=== PATIENT | male | born 1945 | race Caucasian/White ===

== ENCOUNTER 2017-03-14 06:28 | Day surgery (SDC) | payer MEDICARE, OTHER ==
[~2017-03-14] VITALS: Ht 175.3 cm; Wt 73.5 kg
[2017-03-14] VITALS (20 sets, daily range): BP systolic 78–130; BP diastolic 54–89
[~2017-03-14 06:28] MED LIST: FENT-91 TP; HYDR-3965 PO; HYDR-569 PO; METO1TAB25 PO; PANT-47 PO; TRAZ-143 PO; TRIA1CAP14
[2017-03-14] MEDS ORDERED: normal saline 1000ml 1,000 ML IV SCH ×3 (07:00→08:49)
[2017-03-14] MEDS ORDERED: oxyCODONE IR 5mg (immed. release) tablet PO PRN (07:00)
[2017-03-14] MEDS ORDERED: midazolam 2 mg/2 ml injection IV PRN (08:00)
[2017-03-14] MEDS ORDERED: fentaNYL/PF 50MCG/1 ML 2ML syringe IV PRN (08:00)
[2017-03-14] MEDS ORDERED: LIDOcaine 1%/PF (10mg/ml) 5ml vial SQ ONE (08:00)
[2017-03-14 08:01] LABS: BASOPHILS # (AUTO) 0.2 X10'3 (0-0.2); BASOPHILS % (AUTO) 1.4 % (0-1); EOSINOPHILS # (AUTO) 0.5 X10'3 (0-0.9); EOSINOPHILS % (AUTO) 2.9 % (0-6); HEMATOCRIT 41.9 % (42.0-52.0); HEMOGLOBIN 13.8 g/dl (14.0-17.9); LYMPHOCYTES # (AUTO) 1.2 X10'3 (1.1-4.8); MEAN CORPUSCULAR HEMOGLOBIN 29.9 PG (27.0-31.0); MEAN CORPUSCULAR HGB CONC 32.8 % (33.0-36.5); MEAN CORPUSCULAR VOLUME 91.2 FL (78-98); MEAN PLATELET VOLUME 7.3 FL (7.4-10.4); MONOCYTES # (AUTO) 1.2 X10'3 (0-0.9); MONOCYTES % (AUTO) 7.3 % (2-12); NEUTROPHILS % (AUTO) 81.4 % (42-75); PLATELET COUNT 305 X10'3 (140-440); RED CELL DISTRIBUTION WIDTH 14.8 % (11.5-14.5); WHITE BLOOD COUNT 17.1 X10'3 (4.5-11.0)
[2017-03-14] MEDS ORDERED: VITE1000C PO (08:07)
[2017-03-14] MEDS ORDERED: ASCO500C15 PO (08:07)
[2017-03-14] MEDS ORDERED: CYCL-1 PO (08:07)
[2017-03-14] MEDS ORDERED: TRIA1TAB92 PO (08:07)
[2017-03-14] MEDS ORDERED: Juice Plus PO (08:07)
[2017-03-14] MEDS ORDERED: FENT1PAT7 TOP (08:07)
[2017-03-14] MEDS ORDERED: VITAMIN D PO (08:07)
[2017-03-14] MEDS ORDERED: METO50TA7 PO (08:07)
[2017-03-14] MEDS ORDERED: UBID50TA3 PO (08:07)
[2017-03-14] MEDS ORDERED: fentaNYL/PF 50MCG/1 ML 2ML syringe ONE (08:37)
[2017-03-14] MEDS ORDERED: midazolam 2 mg/2 ml injection ONE (08:37)
[2017-03-14] MEDS ORDERED: HYDROcodone/acetaminophen 5mg/325mg tablet PO PRN ×2 (08:50)
[2017-03-14] MEDS ORDERED: HYDROmorphone 1 mg/ml syringe ONE (09:04)
[2017-03-14] MEDS ORDERED: pneumococcal 23-VAL P-sac vacc 25 mcg/0.5ml vial IMVAC ONE (09:30)
[2017-03-14] MEDS ORDERED: LIDOcaine 1% (10mg/ml) 2ml vial ONE (12:52)
[2017-03-14] MEDS ORDERED: ondansetron/PF 4mg/2ml inj ONE (13:18)
== END 2017-03-14 13:55 | disposition home or self-care (01) ==
LOC: SSTAY O 06:28
PROVIDERS: ATTEND Radiology Diagnostic Radiology
DX: K76.89 Other specified diseases of liver (principal); I10 Essential (primary) hypertension; Z87.891 Personal history of nicotine dependence; M19.90 Unspecified osteoarthritis, unspecified site; G89.29 Other chronic pain; Z90.49 Acquired absence of other specified parts of digestive tract; Z98.890 Other specified postprocedural states; Z72.89 Other problems related to lifestyle; Z79.899 Other long term (current) drug therapy; Z98.52 Vasectomy status; Z79.82 Long term (current) use of aspirin
CPT/HCPCS: 36415; 47000; 76942; 85025; 85610; 88341; 88342; 90471; 90732; A6449; J2250; J2405; J3010; J3490; J7030; 88173; 88305; 99152; 99153; A4620; G0009; J1170

== ENCOUNTER 2017-03-17 07:45 | Inpatient (IN) | payer MEDICARE, OTHER ==
[~2017-03-17] VITALS: Ht 175.3 cm; Wt 75.0 kg
[~2017-03-17 07:45] MED LIST changes: +ASCO500C15 PO; +CYCL-1 PO; -FENT-91 TP; +FENT1PAT7 TOP; -HYDR-569 PO; +Juice Plus PO; -METO1TAB25 PO; +METO50TA7 PO; -PANT-47 PO; -TRIA1CAP14; +TRIA1TAB92 PO; +UBID50TA3 PO; +VITAMIN D PO; +VITE1000C PO
[2017-03-17] MEDS ORDERED: normal saline 1000ML IV soln IV ONE (08:10)
[2017-03-17] MEDS ORDERED: magnesium 2GM in 50ml NS 50 ML IV ONE (08:10)
[2017-03-17] MEDS ORDERED: nitroGLYCERIN 0.2mg/hour patch TD ONE (08:15)
[2017-03-17] MEDS ORDERED: aspirin 81mg tab.chew PO ONE (08:15)
[2017-03-17 08:36] LABS: BASOPHILS # (AUTO) 0.1 X10'3 (0-0.2); BASOPHILS % (AUTO) 0.4 % (0-1); EOSINOPHILS # (AUTO) 0.4 X10'3 (0-0.9); EOSINOPHILS % (AUTO) 2.1 % (0-6); HEMATOCRIT 36.7 % (42.0-52.0); HEMOGLOBIN 12.1 g/dl (14.0-17.9); LYMPHOCYTES # (AUTO) 0.7 X10'3 (1.1-4.8); LYMPHOCYTES % (AUTO) 3.9 % (21-51); MEAN CORPUSCULAR HEMOGLOBIN 30.1 PG (27.0-31.0); MEAN CORPUSCULAR HGB CONC 32.9 % (33.0-36.5); MEAN CORPUSCULAR VOLUME 91.4 FL (78-98); MEAN PLATELET VOLUME 7.2 FL (7.4-10.4); MONOCYTES # (AUTO) 0.7 X10'3 (0-0.9); NEUTROPHILS # (AUTO) 15.9 X10'3 (1.8-7.7); NEUTROPHILS % (AUTO) 89.6 % (42-75); PLATELET COUNT 290 X10'3 (140-440); RED BLOOD COUNT 4.02 X10'6 (4.70-6.10); RED CELL DISTRIBUTION WIDTH 15.1 % (11.5-14.5); WHITE BLOOD COUNT 17.7 X10'3 (4.5-11.0)
[2017-03-17 08:53] LABS: ALANINE AMINOTRANSFERASE 47 U/L (12-78); ALBUMIN 2.8 G/DL (3.4-5.0); ALBUMIN/GLOBULIN RATIO 0.5 (1.1-1.5); ALKALINE PHOSPHATASE 300 IU/L (46-116); AMYLASE 24 U/L (25-115); ANION GAP 10 (8-16); ASPARTATE AMINO TRANSFERASE 51 U/L (10-37); BILIRUBIN,TOTAL 0.8 MG/DL (0.1-1.0); BLOOD UREA NITROGEN 18 MG/DL (7-18); CHLORIDE 98 MMOL/L (99-107); GLUCOSE 130 MG/DL (70-104); INR 1.1 INR; LIPASE 95 U/L (73-393); MAGNESIUM 1.8 MG/DL (1.5-2.4); PARTIAL THROMBOPLASTIN TIME 28 SECONDS (22-32); PHOSPHORUS 3.4 MG/DL (2.3-4.5); POTASSIUM 3.8 MMOL/L (3.5-5.1); SODIUM 137 MMOL/L (135-145); TOTAL CARBON DIOXIDE 28.7 MMOL/L (24-32); TOTAL PROTEIN 7.9 G/DL (6.4-8.2); eGFR 59 ML/MIN
[2017-03-17] MEDS ORDERED: morphine 2 MG/ML inj. syringe IV ONE ×2 (09:50→10:00)
[2017-03-17] MEDS ORDERED: normal saline 1000ML IV soln IVB ONE (10:15)
[2017-03-17] MEDS ORDERED: mag hydrox/Alum hydrox/simeth 30ml oral suspension PO PRN (11:15)
[2017-03-17] MEDS ORDERED: magnesium hydroxide 30ml (MOM) UD suspension PO PRN (11:15)
[2017-03-17] MEDS ORDERED: acetaminophen 325mg tablet PO PRN (11:15)
[2017-03-17] MEDS ORDERED: HYDROcodone/acetaminophen 5mg/325mg tablet PO PRN (11:30)
[2017-03-17] MEDS: normal saline 1000ml 1,000 ML IV SCH ×2 (11:48→21:12)
[2017-03-17] MEDS: levoFLOXACIN-Levaquin 750MG/D5 150 ML IV SCH (11:49)
[2017-03-17 12:12] LABS: CLARITY,URINE CLEAR (Clear); COLOR,URINE YELLOW (Yellow); GLUCOSE, URINE NEGATIVE (Neg); KETONES,URINE NEGATIVE (Neg); LEUKOCYTE ESTERASE ,URINE TRACE (Neg); NITRITES, URINE NEGATIVE (Neg); OCCULT BLOOD,URINE MODERATE (Neg); PH,URINE 5.5 (4.8-8.0); PROTEIN,URINE TRACE mg/dl (Neg)
[2017-03-17 12:13] LABS: UA COLLECTION TYPE CLN CATCH MIDSTREAM
[2017-03-17 12:25] LABS: BACTERIA,URINE FEW /HPF (Neg); MUCUS STRANDS MODERATE /LPF (Neg); SQUAMOUS EPITHELIAL CELL,UR FEW /LPF (FEW)
[2017-03-17] MEDS: HYDROcodone/acetaminophen 10/325mg tab PO PRN ×2 (13:30→20:10)
[2017-03-17 16:00] VITALS: BP 112/73
[2017-03-17] MEDS: morphine 2 MG/ML inj. syringe IV PRN (17:26)
[2017-03-17 18:30] VITALS: BP 102/58
[2017-03-17] MEDS: heparin, porcine 5000 units/ml vial SQ SCH (22:01)
[2017-03-17] MEDS: traZODone 150mg tablet PO SCH (22:01)
[2017-03-18] VITALS: BP 149/87
[2017-03-18] MEDS: cyclobenzaprine 10mg tablet PO PRN ×2 (00:57→21:48)
[2017-03-18] MEDS: HYDROcodone/acetaminophen 10/325mg tab PO PRN ×4 (00:59→17:41)
[2017-03-18] MEDS: morphine 2 MG/ML inj. syringe IV PRN ×5 (01:26→20:11)
[2017-03-18] MEDS: vancomycin/NS 1 GM ADD-VANTAGE 250 ML IV SCH ×2 (01:29→13:17)
[2017-03-18 05:39] LABS: BASOPHILS # (AUTO) 0.1 X10'3 (0-0.2); BASOPHILS % (AUTO) 1.1 % (0-1); EOSINOPHILS # (AUTO) 0.9 X10'3 (0-0.9); EOSINOPHILS % (AUTO) 6.5 % (0-6); HEMATOCRIT 28.6 % (42.0-52.0); HEMOGLOBIN 9.4 g/dl (14.0-17.9); LYMPHOCYTES # (AUTO) 0.9 X10'3 (1.1-4.8); LYMPHOCYTES % (AUTO) 7.1 % (21-51); MEAN CORPUSCULAR HEMOGLOBIN 30.2 PG (27.0-31.0); MEAN CORPUSCULAR HGB CONC 32.9 % (33.0-36.5); MEAN CORPUSCULAR VOLUME 91.8 FL (78-98); MEAN PLATELET VOLUME 7.5 FL (7.4-10.4); MONOCYTES # (AUTO) 0.8 X10'3 (0-0.9); MONOCYTES % (AUTO) 6.4 % (2-12); NEUTROPHILS # (AUTO) 10.4 X10'3 (1.8-7.7); NEUTROPHILS % (AUTO) 78.9 % (42-75); PLATELET COUNT 210 X10'3 (140-440); RED BLOOD COUNT 3.11 X10'6 (4.70-6.10); RED CELL DISTRIBUTION WIDTH 15.1 % (11.5-14.5); WHITE BLOOD COUNT 13.2 X10'3 (4.5-11.0)
[2017-03-18 05:55] LABS: ALBUMIN 2.1 G/DL (3.4-5.0); ANION GAP 10 (8-16); BLOOD UREA NITROGEN 13 MG/DL (7-18); BUN/CREATININE RATIO 16.3 (5.4-32.0); CALCIUM 8.3 MG/DL (8.5-10.1); CHLORIDE 105 MMOL/L (99-107); GLUCOSE 96 MG/DL (70-104); POTASSIUM 3.8 MMOL/L (3.5-5.1); SODIUM 139 MMOL/L (135-145); TOTAL CARBON DIOXIDE 24.4 MMOL/L (24-32); eGFR > 90 ML/MIN
[2017-03-18 07:00] VITALS: BP 144/82
[2017-03-18] MEDS: normal saline 1000ml 1,000 ML IV SCH ×2 (07:12→17:40)
[2017-03-18 08:00] VITALS: BP_SYST 114; BP_SYST 127; BP_SYST 134; BP_DIAS 66; BP_DIAS 71; BP_DIAS 72
[2017-03-18] MEDS ORDERED: [UNRECOGNIZED DRUG - OTHER] PO SCH (08:00)
[2017-03-18] MEDS ORDERED: non-formulary drug (Ubidecarenone (Coq10) 50 MG) PO SCH (08:00)
[2017-03-18] MEDS ORDERED: metoprolol tartrate 50mg tablet PO ONE (08:00)
[2017-03-18] MEDS: levoFLOXACIN-Levaquin 750MG/D5 150 ML IV SCH (08:32)
[2017-03-18] MEDS: vitamin D (cholecalciferol) 1,000 unit tablet PO SCH (08:33)
[2017-03-18] MEDS: pantoprazole 40mg Tablet.DR PO SCH (08:33)
[2017-03-18] MEDS: triamterene/HCTZ 37.5/25mg tablet PO SCH (08:33)
[2017-03-18] MEDS: ascorbic acid 500mg tablet PO SCH (08:33)
[2017-03-18] MEDS: metoprolol succinate 25mg (24-HOUR) SR. Tablet PO SCH (08:34)
[2017-03-18] MEDS: heparin, porcine 5000 units/ml vial SQ SCH (08:39)
[2017-03-18] MEDS: fentaNYL 25MCG/hour patch.TD72 TD SCH (09:02)
[2017-03-18 12:03] VITALS: BP 106/68
[2017-03-18 19:00] VITALS: BP_SYST 117; BP_SYST 122; BP_SYST 137; BP_DIAS 62; BP_DIAS 67; BP_DIAS 68
[2017-03-18] MEDS ORDERED: heparin 10,000 units/1 ML INJ IV ONE (19:25)
[2017-03-18] MEDS ORDERED: nitroGLYCERIN 0.4mg SUBLingual tab SL PRN (19:30)
[2017-03-18 19:38] LABS: BASOPHILS % (AUTO) 0.3 % (0-1); EOSINOPHILS # (AUTO) 0.7 X10'3 (0-0.9); EOSINOPHILS % (AUTO) 5.2 % (0-6); HEMATOCRIT 29.8 % (42.0-52.0); HEMOGLOBIN 9.8 g/dl (14.0-17.9); LYMPHOCYTES # (AUTO) 0.8 X10'3 (1.1-4.8); LYMPHOCYTES % (AUTO) 5.9 % (21-51); MEAN CORPUSCULAR HEMOGLOBIN 30.1 PG (27.0-31.0); MEAN CORPUSCULAR HGB CONC 32.9 % (33.0-36.5); MEAN CORPUSCULAR VOLUME 91.5 FL (78-98); MEAN PLATELET VOLUME 7.1 FL (7.4-10.4); MONOCYTES # (AUTO) 0.8 X10'3 (0-0.9); MONOCYTES % (AUTO) 5.5 % (2-12); NEUTROPHILS # (AUTO) 11.9 X10'3 (1.8-7.7); NEUTROPHILS % (AUTO) 83.1 % (42-75); PLATELET COUNT 264 X10'3 (140-440); RED BLOOD COUNT 3.26 X10'6 (4.70-6.10); RED CELL DISTRIBUTION WIDTH 14.7 % (11.5-14.5); WHITE BLOOD COUNT 14.3 X10'3 (4.5-11.0)
[2017-03-18] MEDS ORDERED: aspirin 325mg tablet PO STA (19:43)
[2017-03-18] MEDS: aspirin 325mg tablet PO SCH (19:48)
[2017-03-18 20:02] LABS: INR 1.2 INR
[2017-03-18] MEDS: docusate sod 100mg capsule PO SCH (21:46)
[2017-03-18] MEDS: traZODone 150mg tablet PO SCH (21:48)
[2017-03-18] MEDS: sennosides 8.6mg tablet PO SCH (21:48)
[2017-03-18 23:00] VITALS: BP 115/64
[2017-03-19] MEDS ORDERED: VANCOMYCIN LEVEL IV NR (00:30)
[2017-03-19] MEDS: morphine 2 MG/ML inj. syringe IV PRN ×6 (01:25→23:36)
[2017-03-19] MEDS: vancomycin/NS 1 GM ADD-VANTAGE 250 ML IV SCH (01:53)
[2017-03-19] MEDS: normal saline 1000ml 1,000 ML IV SCH ×3 (01:53→23:12)
[2017-03-19 01:58] LABS: VANCOMYCIN,TROUGH 8.9 UG/ML (6.0-14.0)
[2017-03-19 02:08] LABS: BASOPHILS # (AUTO) 0.1 X10'3 (0-0.2); BASOPHILS % (AUTO) 0.5 % (0-1); EOSINOPHILS % (AUTO) 7.1 % (0-6); HEMATOCRIT 30.3 % (42.0-52.0); HEMOGLOBIN 10.1 g/dl (14.0-17.9); LYMPHOCYTES # (AUTO) 1.3 X10'3 (1.1-4.8); MEAN CORPUSCULAR HEMOGLOBIN 30.5 PG (27.0-31.0); MEAN CORPUSCULAR HGB CONC 33.2 % (33.0-36.5); MEAN CORPUSCULAR VOLUME 91.8 FL (78-98); MEAN PLATELET VOLUME 7.4 FL (7.4-10.4); MONOCYTES # (AUTO) 0.9 X10'3 (0-0.9); NEUTROPHILS # (AUTO) 10.1 X10'3 (1.8-7.7); NEUTROPHILS % (AUTO) 75.4 % (42-75); PLATELET COUNT 270 X10'3 (140-440); RED CELL DISTRIBUTION WIDTH 14.7 % (11.5-14.5); WHITE BLOOD COUNT 13.4 X10'3 (4.5-11.0)
[2017-03-19] MEDS: heparin 10,000 units/1 ML INJ IV PRN (02:19)
[2017-03-19 02:49] LABS: ALBUMIN 2.1 G/DL (3.4-5.0); ANION GAP 9 (8-16); BLOOD UREA NITROGEN 13 MG/DL (7-18); BUN/CREATININE RATIO 16.3 (5.4-32.0); CALCIUM 8.8 MG/DL (8.5-10.1); CHLORIDE 102 MMOL/L (99-107); GLUCOSE 90 MG/DL (70-104); POTASSIUM 3.6 MMOL/L (3.5-5.1); SODIUM 138 MMOL/L (135-145); TROPONIN I < 0.04 NG/ML (0.0-0.05); eGFR > 90 ML/MIN
[2017-03-19 04:00] VITALS: BP 122/67
[2017-03-19 08:10] VITALS: BP 122/67
[2017-03-19] MEDS: levoFLOXACIN-Levaquin 750MG/D5 150 ML IV SCH (09:28)
[2017-03-19] MEDS: triamterene/HCTZ 37.5/25mg tablet PO SCH (09:29)
[2017-03-19] MEDS: aspirin 325mg tablet PO SCH (09:29)
[2017-03-19] MEDS: docusate sod 100mg capsule PO SCH ×2 (09:29→19:33)
[2017-03-19] MEDS: sennosides 8.6mg tablet PO SCH ×2 (09:29→19:33)
[2017-03-19] MEDS: ascorbic acid 500mg tablet PO SCH (09:29)
[2017-03-19] MEDS: vitamin D (cholecalciferol) 1,000 unit tablet PO SCH (09:30)
[2017-03-19] MEDS: metoprolol succinate 25mg (24-HOUR) SR. Tablet PO SCH (09:30)
[2017-03-19] MEDS: pantoprazole 40mg Tablet.DR PO SCH (09:39)
[2017-03-19] MEDS: HYDROcodone/acetaminophen 10/325mg tab PO PRN ×3 (11:42→21:22)
[2017-03-19 11:51] VITALS: BP 114/73
[2017-03-19] MEDS ORDERED: vancomycin inj 1,250 MG in normal saline 250ml IV soln 250 ML IV SCH (15:00)
[2017-03-19] MEDS ORDERED: aminophylline 250mg/10ml inj. IV PRN (16:15)
[2017-03-19] MEDS ORDERED: metoprolol tartrate 1mg/ml inj IV PRN (16:15)
[2017-03-19] MEDS ORDERED: nitroGLYCERIN 0.4mg SUBLingual tab SL PRN (16:15)
[2017-03-19] MEDS ORDERED: regadenoson 0.4mg/5ml syringe IV ONE (16:15)
[2017-03-19] MEDS: lactobacillus rhamnosus 10,000 MMU CELLS/CAPSULE PO SCH (19:33)
[2017-03-19 20:00] VITALS: BP 111/58
[2017-03-19] MEDS: traZODone 150mg tablet PO SCH (21:21)
[2017-03-19 23:00] VITALS: BP 115/60
[2017-03-20] VITALS (11 sets, daily range): BP systolic 93–149; BP diastolic 55–82
[2017-03-20] MEDS: normal saline 1000ml 1,000 ML IV SCH ×3 (01:53→19:30)
[2017-03-20] MEDS: HYDROcodone/acetaminophen 10/325mg tab PO PRN ×4 (02:19→19:24)
[2017-03-20 02:41] LABS: BASOPHILS # (AUTO) 0.2 X10'3 (0-0.2); BASOPHILS % (AUTO) 1.1 % (0-1); EOSINOPHILS % (AUTO) 7.4 % (0-6); HEMATOCRIT 33.5 % (42.0-52.0); HEMOGLOBIN 11.1 g/dl (14.0-17.9); LYMPHOCYTES # (AUTO) 1.4 X10'3 (1.1-4.8); LYMPHOCYTES % (AUTO) 9.8 % (21-51); MEAN CORPUSCULAR HEMOGLOBIN 30.1 PG (27.0-31.0); MEAN CORPUSCULAR HGB CONC 33.1 % (33.0-36.5); MEAN CORPUSCULAR VOLUME 90.9 FL (78-98); MEAN PLATELET VOLUME 7.4 FL (7.4-10.4); MONOCYTES # (AUTO) 0.9 X10'3 (0-0.9); MONOCYTES % (AUTO) 6.7 % (2-12); NEUTROPHILS # (AUTO) 10.3 X10'3 (1.8-7.7); PLATELET COUNT 348 X10'3 (140-440); RED BLOOD COUNT 3.68 X10'6 (4.70-6.10); RED CELL DISTRIBUTION WIDTH 14.8 % (11.5-14.5); WHITE BLOOD COUNT 13.8 X10'3 (4.5-11.0)
[2017-03-20 02:52] LABS: ALBUMIN 2.3 G/DL (3.4-5.0); ANION GAP 8 (8-16); BLOOD UREA NITROGEN 11 MG/DL (7-18); CALCIUM 9.3 MG/DL (8.5-10.1); CHLORIDE 101 MMOL/L (99-107); GLUCOSE 96 MG/DL (70-104); POTASSIUM 3.6 MMOL/L (3.5-5.1); SODIUM 136 MMOL/L (135-145); TOTAL CARBON DIOXIDE 27.3 MMOL/L (24-32); eGFR 73 ML/MIN
[2017-03-20] MEDS: heparin 10,000 units/1 ML INJ IV PRN ×2 (03:42→11:00)
[2017-03-20] MEDS: morphine 2 MG/ML inj. syringe IV PRN ×4 (08:10→21:22)
[2017-03-20] MEDS: pantoprazole 40mg Tablet.DR PO SCH (08:16)
[2017-03-20] MEDS: docusate sod 100mg capsule PO SCH ×2 (08:16→21:23)
[2017-03-20] MEDS: vitamin D (cholecalciferol) 1,000 unit tablet PO SCH (08:16)
[2017-03-20] MEDS: triamterene/HCTZ 37.5/25mg tablet PO SCH (08:16)
[2017-03-20] MEDS: sennosides 8.6mg tablet PO SCH ×2 (08:16→21:25)
[2017-03-20] MEDS: aspirin 325mg tablet PO SCH (08:16)
[2017-03-20] MEDS: lactobacillus rhamnosus 10,000 MMU CELLS/CAPSULE PO SCH ×2 (08:16→21:23)
[2017-03-20] MEDS: ascorbic acid 500mg tablet PO SCH (08:16)
[2017-03-20] MEDS: metoprolol succinate 25mg (24-HOUR) SR. Tablet PO SCH (08:16)
[2017-03-20] MEDS: levoFLOXACIN-Levaquin 750MG/D5 150 ML IV SCH (08:17)
[2017-03-20] MEDS ORDERED: iohexol 350 MG/ML 50ML vial IV ONE (15:59)
[2017-03-20] MEDS ORDERED: iohexol 350MG/ML 100ml bottle IV ONE (15:59)
[2017-03-20] MEDS ORDERED: nitroGLYCERIN-Tridil 50MG/D5W 250 ML IV ONE (15:59)
[2017-03-20] MEDS ORDERED: LIDOcaine 1%/PF (10mg/ml) 5ml vial ONE (15:59)
[2017-03-20] MEDS ORDERED: heparin 1,000unit/ml 10ml vial 10 ML ONE (16:42)
[2017-03-20] MEDS ORDERED: fentaNYL/PF 50MCG/1 ML 2ML syringe ONE (17:18)
[2017-03-20] MEDS ORDERED: midazolam 2 mg/2 ml injection ONE ×2 (17:18→18:08)
[2017-03-20] MEDS ORDERED: LIDOcaine 2% 10ml TOPICAL JELLY (Urojet) ONE (18:00)
[2017-03-20] MEDS ORDERED: aspirin 325mg tablet PO ONE (19:35)
[2017-03-20] MEDS: nitroGLYCERIN 0.4mg/hour patch TD SCH (21:23)
[2017-03-20] MEDS: traZODone 150mg tablet PO SCH (21:24)
[2017-03-20] MEDS: atorvastatin 20mg tablet PO SCH (21:24)
[2017-03-20 21:53] LABS: CHOL/HDL RATIO 3.2 (0.00-4.99); CHOLESTEROL 107 MG/DL (0-200); HDL CHOLESTEROL 33 MG/DL (35-60); LDL CHOLESTEROL 59 MG/DL (50-100); TRIGLYCERIDES 102 MG/DL (20-135)
[2017-03-21] VITALS (12 sets, daily range): BP systolic 101–173; BP diastolic 61–92
[2017-03-21] MEDS ORDERED: VANCOMYCIN LEVEL IV NR (02:30)
[2017-03-21] MEDS: HYDROcodone/acetaminophen 10/325mg tab PO PRN ×4 (02:35→21:13)
[2017-03-21] MEDS: morphine 2 MG/ML inj. syringe IV PRN ×3 (03:08→23:24)
[2017-03-21 05:19] LABS: BASOPHILS % (AUTO) 0.3 % (0-1); EOSINOPHILS # (AUTO) 0.9 X10'3 (0-0.9); EOSINOPHILS % (AUTO) 7.1 % (0-6); HEMATOCRIT 28.5 % (42.0-52.0); HEMOGLOBIN 9.7 g/dl (14.0-17.9); LYMPHOCYTES # (AUTO) 0.8 X10'3 (1.1-4.8); LYMPHOCYTES % (AUTO) 6.2 % (21-51); MEAN CORPUSCULAR HEMOGLOBIN 30.1 PG (27.0-31.0); MEAN CORPUSCULAR HGB CONC 34.1 % (33.0-36.5); MEAN CORPUSCULAR VOLUME 88.3 FL (78-98); MEAN PLATELET VOLUME 7.1 FL (7.4-10.4); MONOCYTES # (AUTO) 0.4 X10'3 (0-0.9); MONOCYTES % (AUTO) 3.5 % (2-12); NEUTROPHILS # (AUTO) 10.6 X10'3 (1.8-7.7); NEUTROPHILS % (AUTO) 82.9 % (42-75); PLATELET COUNT 382 X10'3 (140-440); RED BLOOD COUNT 3.23 X10'6 (4.70-6.10); RED CELL DISTRIBUTION WIDTH 14.8 % (11.5-14.5); WHITE BLOOD COUNT 12.8 X10'3 (4.5-11.0)
[2017-03-21] MEDS: normal saline 1000ml 1,000 ML IV SCH ×2 (05:25→15:30)
[2017-03-21 05:45] LABS: ANION GAP 8 (8-16); BLOOD UREA NITROGEN 12 MG/DL (7-18); CHLORIDE 100 MMOL/L (99-107); GLUCOSE 146 MG/DL (70-104); POTASSIUM 3.6 MMOL/L (3.5-5.1); SODIUM 136 MMOL/L (135-145); TOTAL CARBON DIOXIDE 27.9 MMOL/L (24-32); eGFR 73 ML/MIN
[2017-03-21] MEDS: triamterene/HCTZ 37.5/25mg tablet PO SCH (08:00)
[2017-03-21] MEDS: nitroGLYCERIN 0.4mg/hour patch TD SCH (08:00)
[2017-03-21] MEDS: metoprolol succinate 25mg (24-HOUR) SR. Tablet PO SCH (08:00)
[2017-03-21] MEDS: levoFLOXACIN-Levaquin 750MG/D5 150 ML IV SCH (08:11)
[2017-03-21] MEDS: lactobacillus rhamnosus 10,000 MMU CELLS/CAPSULE PO SCH ×2 (08:13→17:30)
[2017-03-21] MEDS: vitamin D (cholecalciferol) 1,000 unit tablet PO SCH (08:13)
[2017-03-21] MEDS: pantoprazole 40mg Tablet.DR PO SCH (08:13)
[2017-03-21] MEDS: ascorbic acid 500mg tablet PO SCH (08:13)
[2017-03-21] MEDS: sennosides 8.6mg tablet PO SCH ×2 (08:13→20:56)
[2017-03-21] MEDS: docusate sod 100mg capsule PO SCH ×2 (08:13→20:56)
[2017-03-21] MEDS: aspirin 325mg tablet PO SCH (08:13)
[2017-03-21] MEDS: cyclobenzaprine 10mg tablet PO PRN (08:22)
[2017-03-21] MEDS: heparin 10,000 units/1 ML INJ IV PRN (09:20)
[2017-03-21] MEDS ORDERED: midazolam 2 mg/2 ml injection ONE ×2 (15:40→17:09)
[2017-03-21] MEDS ORDERED: heparin 1,000unit/ml 10ml vial 10 ML ONE (15:40)
[2017-03-21] MEDS ORDERED: LIDOcaine 1%/PF (10mg/ml) 5ml vial ONE (15:40)
[2017-03-21] MEDS ORDERED: iohexol 350 MG/1 ML 200ml bottle ONE (15:40)
[2017-03-21] MEDS ORDERED: fentaNYL/PF 50MCG/1 ML 2ML syringe ONE ×2 (15:40→17:09)
[2017-03-21] MEDS ORDERED: nitroGLYCERIN-Tridil 50MG/D5W 250 ML IV ONE (15:41)
[2017-03-21] MEDS ORDERED: clopidogrel 300mg tablet ONE (17:15)
[2017-03-21] MEDS ORDERED: morphine 2 MG/ML inj. syringe IV PRN (18:40)
[2017-03-21] MEDS ORDERED: proCHLORperazine 10 MG/2 ml inj IV PRN (18:40)
[2017-03-21] MEDS ORDERED: cyclobenzaprine 10mg tablet PO PRN (18:40)
[2017-03-21] MEDS ORDERED: OXAZEpam 15mg capsule PO PRN (18:40)
[2017-03-21] MEDS ORDERED: acetaminophen 325mg tablet PO PRN (18:40)
[2017-03-21] MEDS: ondansetron/PF 4mg/2ml inj IV PRN (20:47)
[2017-03-21] MEDS: traZODone 150mg tablet PO SCH (20:56)
[2017-03-21] MEDS: atorvastatin 20mg tablet PO SCH (21:00)
[2017-03-21] MEDS: fentaNYL 25MCG/hour patch.TD72 TD SCH (21:07)
[2017-03-21] MEDS: temazepam 15mg capsule PO PRN (23:16)
[2017-03-22] VITALS (23 sets, daily range): BP systolic 95–164; BP diastolic 51–98
[2017-03-22] MEDS: normal saline 1000ml 1,000 ML IV SCH ×4 (02:35→22:02)
[2017-03-22 03:25] LABS: BASOPHILS # (AUTO) 0.1 X10'3 (0-0.2); BASOPHILS % (AUTO) 0.4 % (0-1); EOSINOPHILS # (AUTO) 0.7 X10'3 (0-0.9); HEMATOCRIT 27.4 % (42.0-52.0); HEMOGLOBIN 9.3 g/dl (14.0-17.9); LYMPHOCYTES % (AUTO) 5.9 % (21-51); MEAN CORPUSCULAR HEMOGLOBIN 29.9 PG (27.0-31.0); MEAN CORPUSCULAR VOLUME 87.9 FL (78-98); MEAN PLATELET VOLUME 6.7 FL (7.4-10.4); MONOCYTES # (AUTO) 1.2 X10'3 (0-0.9); MONOCYTES % (AUTO) 7.1 % (2-12); NEUTROPHILS # (AUTO) 14.1 X10'3 (1.8-7.7); NEUTROPHILS % (AUTO) 82.6 % (42-75); PLATELET COUNT 440 X10'3 (140-440); RED BLOOD COUNT 3.12 X10'6 (4.70-6.10); RED CELL DISTRIBUTION WIDTH 14.8 % (11.5-14.5); WHITE BLOOD COUNT 17.1 X10'3 (4.5-11.0)
[2017-03-22 03:41] LABS: ALBUMIN 1.9 G/DL (3.4-5.0); ANION GAP 7 (8-16); BLOOD UREA NITROGEN 11 MG/DL (7-18); BUN/CREATININE RATIO 13.8 (5.4-32.0); CALCIUM 8.4 MG/DL (8.5-10.1); CHLORIDE 101 MMOL/L (99-107); GLUCOSE 121 MG/DL (70-104); POTASSIUM 3.7 MMOL/L (3.5-5.1); SODIUM 136 MMOL/L (135-145); TOTAL CARBON DIOXIDE 28.4 MMOL/L (24-32); eGFR > 90 ML/MIN
[2017-03-22] MEDS: HYDROcodone/acetaminophen 10/325mg tab PO PRN ×4 (05:34→20:13)
[2017-03-22] MEDS: heparin 10,000 units/1 ML INJ IV PRN (07:14)
[2017-03-22] MEDS ORDERED: nitroGLYCERIN-Tridil 50MG/D5W 250 ML IV ONE (07:22)
[2017-03-22] MEDS ORDERED: heparin 1,000 UNITS/NS 500ml 500 ML ONE ×3 (07:23→08:13)
[2017-03-22] MEDS ORDERED: LIDOcaine 1%/PF (10mg/ml) 5ml vial ONE (07:23)
[2017-03-22] MEDS ORDERED: iohexol 350 MG/1 ML 200ml bottle ONE (07:23)
[2017-03-22] MEDS ORDERED: heparin 1,000unit/ml 10ml vial 10 ML ONE (07:23)
[2017-03-22] MEDS ORDERED: midazolam 2 mg/2 ml injection ONE (07:35)
[2017-03-22] MEDS ORDERED: fentaNYL/PF 50MCG/1 ML 2ML syringe ONE (07:35)
[2017-03-22] MEDS: morphine 2 MG/ML inj. syringe IV PRN ×4 (07:50→21:52)
[2017-03-22] MEDS: nitroGLYCERIN 0.4mg/hour patch TD SCH (08:00)
[2017-03-22] MEDS ORDERED: HYDROmorphone 1 mg/ml syringe ONE (08:27)
[2017-03-22] MEDS ORDERED: aspirin 325mg tablet PO SCH (08:30)
[2017-03-22] MEDS ORDERED: iohexol 350MG/ML 100ml bottle IV ONE (09:05)
[2017-03-22] MEDS ORDERED: clopidogrel 300mg tablet ONE (09:12)
[2017-03-22] MEDS: ondansetron/PF 4mg/2ml inj IV PRN (09:42)
[2017-03-22] MEDS: clopidogrel 75mg tablet PO SCH (11:46)
[2017-03-22] MEDS: pantoprazole 40mg Tablet.DR PO SCH (11:46)
[2017-03-22] MEDS: levoFLOXACIN 750MG TABLET PO SCH (11:46)
[2017-03-22] MEDS: lactobacillus rhamnosus 10,000 MMU CELLS/CAPSULE PO SCH ×2 (11:46→17:58)
[2017-03-22] MEDS: metoprolol succinate 25mg (24-HOUR) SR. Tablet PO SCH (11:47)
[2017-03-22] MEDS: triamterene/HCTZ 37.5/25mg tablet PO SCH (11:47)
[2017-03-22] MEDS: vitamin D (cholecalciferol) 1,000 unit tablet PO SCH (11:47)
[2017-03-22] MEDS: aspirin 325mg tablet PO SCH (11:47)
[2017-03-22] MEDS: ascorbic acid 500mg tablet PO SCH (11:47)
[2017-03-22] MEDS: docusate sod 100mg capsule PO SCH ×2 (11:47→20:12)
[2017-03-22] MEDS: sennosides 8.6mg tablet PO SCH ×2 (11:48→20:13)
[2017-03-22] MEDS: cyclobenzaprine 10mg tablet PO PRN (15:13)
[2017-03-22] MEDS: traZODone 150mg tablet PO SCH (21:51)
[2017-03-22] MEDS: atorvastatin 20mg tablet PO SCH (21:51)
[2017-03-22] MEDS: temazepam 15mg capsule PO PRN (21:51)
[2017-03-23] VITALS (13 sets, daily range): BP systolic 99–142; BP diastolic 62–86
[2017-03-23] MEDS: HYDROcodone/acetaminophen 10/325mg tab PO PRN ×3 (04:10→13:48)
[2017-03-23 06:24] LABS: BASOPHILS # (AUTO) 0.1 X10'3 (0-0.2); BASOPHILS % (AUTO) 0.3 % (0-1); EOSINOPHILS # (AUTO) 1.1 X10'3 (0-0.9); EOSINOPHILS % (AUTO) 5.7 % (0-6); HEMATOCRIT 30.1 % (42.0-52.0); HEMOGLOBIN 10.4 g/dl (14.0-17.9); LYMPHOCYTES # (AUTO) 0.8 X10'3 (1.1-4.8); LYMPHOCYTES % (AUTO) 4.1 % (21-51); MEAN CORPUSCULAR HEMOGLOBIN 30.5 PG (27.0-31.0); MEAN CORPUSCULAR HGB CONC 34.4 % (33.0-36.5); MEAN CORPUSCULAR VOLUME 88.5 FL (78-98); MEAN PLATELET VOLUME 6.9 FL (7.4-10.4); MONOCYTES # (AUTO) 1.3 X10'3 (0-0.9); MONOCYTES % (AUTO) 6.4 % (2-12); NEUTROPHILS # (AUTO) 16.4 X10'3 (1.8-7.7); NEUTROPHILS % (AUTO) 83.5 % (42-75); PLATELET COUNT 548 X10'3 (140-440); RED CELL DISTRIBUTION WIDTH 14.8 % (11.5-14.5); WHITE BLOOD COUNT 19.6 X10'3 (4.5-11.0)
[2017-03-23 06:38] LABS: ALANINE AMINOTRANSFERASE 37 U/L (12-78); ALBUMIN/GLOBULIN RATIO 0.4 (1.1-1.5); ALKALINE PHOSPHATASE 410 IU/L (46-116); ANION GAP 10 (8-16); ASPARTATE AMINO TRANSFERASE 58 U/L (10-37); BILIRUBIN,TOTAL 0.5 MG/DL (0.1-1.0); BLOOD UREA NITROGEN 11 MG/DL (7-18); BUN/CREATININE RATIO 12.2 (5.4-32.0); CALCIUM 8.7 MG/DL (8.5-10.1); CHLORIDE 97 MMOL/L (99-107); GLUCOSE 95 MG/DL (70-104); SODIUM 133 MMOL/L (135-145); TOTAL CARBON DIOXIDE 25.8 MMOL/L (24-32); TOTAL PROTEIN 6.5 G/DL (6.4-8.2); eGFR 82 ML/MIN
[2017-03-23] MEDS: aspirin 325mg tablet PO SCH (07:06)
[2017-03-23] MEDS: sennosides 8.6mg tablet PO SCH ×2 (07:06→20:00)
[2017-03-23] MEDS: metoprolol succinate 25mg (24-HOUR) SR. Tablet PO SCH (07:06)
[2017-03-23] MEDS: lactobacillus rhamnosus 10,000 MMU CELLS/CAPSULE PO SCH ×2 (07:06→16:44)
[2017-03-23] MEDS: ascorbic acid 500mg tablet PO SCH (07:06)
[2017-03-23] MEDS: vitamin D (cholecalciferol) 1,000 unit tablet PO SCH (07:06)
[2017-03-23] MEDS: docusate sod 100mg capsule PO SCH ×2 (07:06→20:00)
[2017-03-23] MEDS: pantoprazole 40mg Tablet.DR PO SCH (07:06)
[2017-03-23] MEDS: clopidogrel 75mg tablet PO SCH (07:06)
[2017-03-23] MEDS: triamterene/HCTZ 37.5/25mg tablet PO SCH (07:07)
[2017-03-23] MEDS: morphine 2 MG/ML inj. syringe IV PRN (07:50)
[2017-03-23] MEDS: nitroGLYCERIN 0.4mg/hour patch TD SCH (08:00)
[2017-03-23] MEDS: levoFLOXACIN 750MG TABLET PO SCH (13:48)
[2017-03-23] MEDS: atorvastatin 20mg tablet PO SCH (21:00)
[2017-03-23] MEDS: temazepam 15mg capsule PO PRN (21:05)
[2017-03-23] MEDS: traZODone 150mg tablet PO SCH (21:05)
[2017-03-24] MEDS: HYDROcodone/acetaminophen 10/325mg tab PO PRN ×4 (01:19→15:31)
[2017-03-24 02:00] VITALS: BP 104/63
[2017-03-24 06:00] VITALS: BP 122/83
[2017-03-24] MEDS: pantoprazole 40mg Tablet.DR PO SCH (06:39)
[2017-03-24] MEDS: lactobacillus rhamnosus 10,000 MMU CELLS/CAPSULE PO SCH (06:40)
[2017-03-24] MEDS: clopidogrel 75mg tablet PO SCH (07:39)
[2017-03-24] MEDS: aspirin 325mg tablet PO SCH (07:39)
[2017-03-24] MEDS: vitamin D (cholecalciferol) 1,000 unit tablet PO SCH (07:40)
[2017-03-24] MEDS: docusate sod 100mg capsule PO SCH (07:40)
[2017-03-24] MEDS: metoprolol succinate 25mg (24-HOUR) SR. Tablet PO SCH (07:40)
[2017-03-24] MEDS: ascorbic acid 500mg tablet PO SCH (07:41)
[2017-03-24] MEDS: sennosides 8.6mg tablet PO SCH (07:42)
[2017-03-24] MEDS: triamterene/HCTZ 37.5/25mg tablet PO SCH (07:43)
[2017-03-24] MEDS: nitroGLYCERIN 0.4mg/hour patch TD SCH (07:44)
[2017-03-24] MEDS: fentaNYL 25MCG/hour patch.TD72 TD SCH (09:21)
[2017-03-24 09:41] LABS: BASOPHILS # (AUTO) 0.2 X10'3 (0-0.2); BASOPHILS % (AUTO) 0.9 % (0-1); EOSINOPHILS # (AUTO) 0.9 X10'3 (0-0.9); EOSINOPHILS % (AUTO) 4.5 % (0-6); HEMATOCRIT 31.8 % (42.0-52.0); HEMOGLOBIN 10.8 g/dl (14.0-17.9); LYMPHOCYTES # (AUTO) 0.9 X10'3 (1.1-4.8); LYMPHOCYTES % (AUTO) 4.4 % (21-51); MEAN CORPUSCULAR HEMOGLOBIN 30.3 PG (27.0-31.0); MEAN CORPUSCULAR HGB CONC 34.1 % (33.0-36.5); MEAN PLATELET VOLUME 6.9 FL (7.4-10.4); MONOCYTES # (AUTO) 1.2 X10'3 (0-0.9); MONOCYTES % (AUTO) 5.9 % (2-12); NEUTROPHILS # (AUTO) 17.6 X10'3 (1.8-7.7); NEUTROPHILS % (AUTO) 84.3 % (42-75); PLATELET COUNT 556 X10'3 (140-440); RED BLOOD COUNT 3.57 X10'6 (4.70-6.10); RED CELL DISTRIBUTION WIDTH 14.7 % (11.5-14.5); WHITE BLOOD COUNT 20.9 X10'3 (4.5-11.0)
[2017-03-24] MEDS: levoFLOXACIN 750MG TABLET PO SCH (10:22)
[2017-03-24 10:23] LABS: PLATELET ESTIMATE INCREASED; TOTAL CELLS COUNTED 100
[2017-03-24 10:24] LABS: ANISOCYTOSIS 1+; POLYCHROMASIA 1+
[2017-03-24 11:00] VITALS: BP 102/57
[2017-03-24] MEDS ORDERED: ASPI81TA52 PO (13:36)
[2017-03-24] MEDS ORDERED: ATOR20TA PO (13:36)
[2017-03-24] MEDS ORDERED: CLOP75TA15 PO (13:36)
[2017-03-24 15:00] VITALS: BP 117/70
[2017-03-24] MEDS ORDERED: HYDR-569 PO (16:18)
== END 2017-03-24 17:10 | disposition home health service (06) | DRG 249 ==
LOC: ER 07:45 → ED HOLD 11:12 → EDBEDREQ 14:53 → SUR 3N 15:27 → PACU 03-21 17:29 → ICU 2S 03-21 17:44 → CICU 2S 03-21 18:41 → PCU 3S 03-23 07:16
PROVIDERS: ADMIT Family Medicine; ATTEND Family Medicine
PROC: 0T9B80Z Drainage of Bladder with Drainage Device, Via Natural or Artificial Opening Endoscopic (ICD-10-PCS; 2017-03-20)
PROC: 4A023N7 Measurement of Cardiac Sampling and Pressure, Left Heart, Percutaneous Approach (ICD-10-PCS; 2017-03-20)
PROC: B2111ZZ Fluoroscopy of Multiple Coronary Arteries using Low Osmolar Contrast (ICD-10-PCS; 2017-03-20)
PROC: B2151ZZ Fluoroscopy of Left Heart using Low Osmolar Contrast (ICD-10-PCS; 2017-03-20)
PROC: 02713EZ Dilation of Coronary Artery, Two Arteries with Two Intraluminal Devices, Percutaneous Approach (ICD-10-PCS; principal; 2017-03-21)
PROC: 02703DZ Dilation of Coronary Artery, One Artery with Intraluminal Device, Percutaneous Approach (ICD-10-PCS; 2017-03-22)
PROC: 02713ZZ Dilation of Coronary Artery, Two Arteries, Percutaneous Approach (ICD-10-PCS; 2017-03-22)
DX: I21.3 ST elevation (STEMI) myocardial infarction of unspecified site (principal); E87.2 Acidosis; G89.29 Other chronic pain; I25.10 Atherosclerotic heart disease of native coronary artery without angina pectoris; K76.9 Liver disease, unspecified; R16.0 Hepatomegaly, not elsewhere classified; I10 Essential (primary) hypertension; R33.9 Retention of urine, unspecified; M19.90 Unspecified osteoarthritis, unspecified site; Z90.49 Acquired absence of other specified parts of digestive tract; Z79.899 Other long term (current) drug therapy; Z87.442 Personal history of urinary calculi; Z87.891 Personal history of nicotine dependence
CPT/HCPCS: 92920; 92921; 93306; 93458; 96361; 96365; 96375; 99285; C9600; C9601; 36415; 71045; 71110; 80048; 80053; 80061; 80202; 81001; 82150; 83605; 83690; 83735; 84100; 84145; 84484; 85025; 85347; 85610; 85730; 87040; 87070; 87088; 87502; 87503; 93005; 97110; 97161; 99152; 99153; A4315; A4620; A6213; A6257; A6258; A6449; C1725; C1750; C1769; C1876; J1170; J1644; J1956; J2001; J2250; J2270; J2405; J3010; J3370; J3475; J3490; J7030; Q9967